=== PATIENT | female | born 1965 | race Caucasian/White ===

== ENCOUNTER 2018-06-25 12:37 | Emergency (ER) | payer BC, SELFPAY ==
[2018-06-25 12:38] VITALS: BP 156/114; PULSE 88; RESP 14; TEMP 36.3; O2SAT 93; BMI 29.8
--- NOTE | 2018-06-25 15:19 | CT_ITS ---
STUDY: CT BRAIN WITHOUT CONTRAST REASON FOR EXAM: Female, 52 years old. Chest heaviness and altered mental status RADIATION DOSAGE (If Supplied By Facility): CTDIvol = ( 44.99 ) mGy, DLP = ( 779.24 ) mGycm TECHNIQUE: Transaxial CT imaging of the brain was performed without administration of intravenous contrast material. Individualized dose optimization techniques were used for this CT. COMPARISON: None. FINDINGS: Normal soft tissue structures. Normal calvarium. Right frontal exostosis. Normal size ventricles and extra-axial spaces for the patient's age. Normal white matter tracts of the cerebral hemispheres. Normal basal ganglia and thalami. Normal brainstem. Normal cerebellum. There is no intracranial hemorrhage. There are no findings of an acute ischemic infarction. Normal visualized paranasal sinuses. CT/Brain/Head without Contrast IMPRESSION: No acute disease Electronically Signed: Wayne Pablo MD at 16:23 EST , Service support ,
--- NOTE | 2018-06-25 15:20 | EKG12_ITS ---
Test Reason : WEAKNESS Blood Pressure : / mmHG Vent. Rate : 067 BPM Atrial Rate : 067 BPM P-R Int : 134 ms QRS Dur : 072 ms QT Int : 458 ms P-R-T Axes : 035 -07 034 degrees QTc Int : 483 ms Normal sinus rhythm with sinus arrhythmia Low voltage QRS Prolonged QT Abnormal ECG Confirmed by DINORAH MENG, CAROL ([id number]), scientific editor ASTRID COULTER ([id number] on 06/28/2018 3:32:32 PM Referred By: KAE Confirmed By:CAROL COPEALND MD
--- NOTE | 2018-06-25 15:31 | RAD_ITS ---
STUDY: X-RAY CHEST REASON FOR EXAM: Female, 52 years old. Weakness and shortness of breath. TECHNIQUE: Single AP portable view of the chest. COMPARISON: None. FINDINGS: The lungs are clear and expanded. Scattered calcified granulomas. There is no demonstrated pleural abnormality. Normal size heart. Normal mediastinum and valentin. Normal visualized pulmonary arteries. Normal visualized aortic arch and descending thoracic aorta. Normal visualized thoracic spine. Normal visualized ribs, clavicles, and shoulders. There is no demonstrated abnormality of the visualized soft tissue structures of the upper abdomen. RAD/Chest 1 View (Portable) IMPRESSION: Normal x-ray examination of the chest. Electronically Signed: Woodrow Hamilton MD at 15:46 EST Tel [phone], Service support ,
[2018-06-25 15:46] VITALS: BP 126/86; PULSE 76; RESP 20; O2SAT 97
[2018-06-25] MEDS: 0.9% Normal Saline 1,000 ML 1000 ML IV (15:49)
[2018-06-25 16:00] LABS: Absolute Lymphocyte Count 3.04 X10^3/ul (0.83-4.51); Absolute Neutrophil Count 4.5 X10^3/uL (2.0-7.7); Basophil# 0.05 X10^3/uL; Basophil% 0.6 % (0-1); Eosinophil# 0.12 X10^3/uL; Eosinophils% 1.5 % (0-5); Hematocrit 42.4 % (37-47); Hemoglobin 13.6 g/dl (12.0-15.0); Lymphocyte # 3.04 X10^3/ul (4.0); Lymphocyte % 37.3 % (19-41); Mean Corp Hgb Conc 32.1 g/gl (32-36); Mean Corpuscular Hgb 28.6 pg (27.0-32.0); Mean Corpuscular Volume 89.3 fL (81-99); Mean Platelet Vol. 10.6 fl (6.2-12.0); Monocyte# 0.41 X10^3/uL; Neutrophil # 4.51 X10^3/uL (2.7-7.7); Neutrophil % 55.5 % (47-70); POSITIVE COUNT NO; POSITIVE DIFFERENTIAL NO; POSITIVE MORPHOLOGY NO; Platelet Count 316 K/mm3 (150-450); RBC Distribution Width CV 13.4 % (11.6-14.6); RBC Distribution Width SD 43.6 fl (35.1-43.9); Red Blood Count 4.75 M/mm3 (4.2-5.4); White Blood Count 8.1 K/mm3 (4.4-11.0)
[2018-06-25 16:08] LABS: Anion Gap 9 (5-15); BUN 9 mg/dL (7-18); BUN/Creat Ratio 10.8 RATIO (10-20); Calcium,Total 9.1 mg/dL (8.5-10.1); Chloride 104 mmol/L (98-107); Creatinine, Serum 0.84 mg/dL (0.55-1.02); EST Glomerular Filtration Rate 76 mL/min (>60); Est Glom Filt Rate - Afr Amer 92 mL/min (>60); Estimated Creatinine Clearance 65.54 ml/min; Glucose 84 mg/dL (74-106); Potassium 3.6 mmol/L (3.5-5.1); Sodium Level 141 mmol/L (136-145); Thyroid Stim Hormone (TSH) 3.99 uIU/mL (0.358-3.74)
[2018-06-25 16:18] LABS: D-Dimer Quantitative (DVT/PE) 0.29 FEU/ug/m (0.27-0.49)
[2018-06-25] MEDS: 0.9% Normal Saline 1,000 ML 150 ML IV (16:35)
[2018-06-25 16:50] LABS: Bacteria 0 SEEN /hpf (None Seen); Mucous, Urine 0 SEEN /hpf (<or=2+); Red Blood Cells-Urine 0 SEEN /hpf (0-5); White Blood Cells 0 SEEN /hpf (0-5)
[2018-06-25 16:59] VITALS: BP 123/77; PULSE 64; RESP 17; O2SAT 97
[2018-06-25 17:04] LABS: Color, Urine Yellow (Yellow); Glucose, Dipstick Normal (Normal); Ketone-Dipstick Negative (Negative); Leukocyte Esterase-Dipstick 25 /ul (Negative); Nitrite-Dipstick Negative (Negative); Occult Blood-Urine Negative /ul (Negative); Protein-Dipstick Negative (Negative); Specific Gravity, Urine 1.005 (1.002-1.030); Urine Bilirubin Dipstick Negative (Negative); Urine Clarity Clear (Clear); Urine Urobilinogen Normal (Normal); Urine pH 6.5 (5.0 - 8.0)
[2018-06-25 17:20] LABS: Squamous Epithelial Cells - UA 0-5 SEEN /hpf (5-10)
--- NOTE | 2018-06-25 17:28 | ED.VISSUMM ---
- ER Visit Summary Date of Service: 06/25/18 Chief Complaint: Chest pain, hot flashes History of Present Illness: The patient is a 52 F with 3 episodes today of chest heaviness with shortness of breath and lightheadedness. Symptoms lasted only 10-15 seconds and then resolved. She is not sure if this may be a panic attack. She has noted more frequent headaches recently as well and states that she is intermittently been smelling smoke over the past couple of months. Patient denies any change in medications or diet. Physical Examination: Vital signs on arrival include a blood pressure 156/114, otherwise unremarkable. Patient sitting upright in bed no acute distress. She is alert and talkative. Head neck examination is unremarkable. Heart is regular rate and rhythm. Lung sounds are clear. Abdomen is soft and nontender. Neuro exam is normal. Test Results: EKG is sinus at 67 with no acute ischemia. Portable chest x-ray is normal. CT head shows no acute disease. CBC and chemistry studies normal. Urinalysis normal. Troponin and d-dimer are both negative. TSH is minimally elevated at 3.99. Emergency Department Course and Treatment: Patient was given IV fluids here. On repeat evaluation she is resting comfortably. We discussed her test results. She will continue to monitor her symptoms and follow-up with her primary care physician. Return for worsening symptoms or concerns. Treatment Plan: [] Disposition: Discharge Impression: Dizziness, uncertain etiology This note was generated with [employer] dictation software. It may contain incorrect words, spelling, and punctuation that were not noted in review of the chart prior to signing ED Disposition - Plan for ED Patient: Chief Complaint: Weakness Referrals: Leno Elder DO [Primary Care Provider] -
--- NOTE | 2018-06-25 17:30 | ED.DEP ---
ED Disposition - Plan for ED Patient: Disposition: Home or Assisted Living Chief Complaint: Weakness Instructions: ED Dizziness [facility] Referrals: Leno Elder DO [Primary Care Provider] - 1 Week
== END 2018-06-25 17:52 | disposition home or self-care (01) ==
PROVIDERS: Emergency Provider Emergency Medicine; Family Provider Student in an Organized Health Care Education/Training Program; PCP Student in an Organized Health Care Education/Training Program
DX: R42 Dizziness and giddiness (principal); R51 Headache; R94.6 Abnormal results of thyroid function studies
CPT/HCPCS: 70450; 71045; 80048; 81001; 84443; 84484; 85025; 85379; 93005; 96360; 96361; 99284; J7030; A4216